=== PATIENT | male | born 1950 | race Caucasian/White ===

== ENCOUNTER → 2017-07-06 | Outpatient (REF) | payer MEDICARE, OTHER ==
[2017-07-06 19:35] LABS: ATYPICAL LYMPH 31 % (0-5); EOSINOPHILS 1 % (0-5); LYMPHOCYTES 48 % (16-52); MONOCYTES 2 % (0-8); NEUTROPHILS 18 % (35-75)
[2017-07-06 19:43] LABS: PLATELET ESTIMATE NORMAL (NORMAL)
== END ==
LOC: M LAB REF 19:00
DX: J44.9 Chronic obstructive pulmonary disease, unspecified (principal)
CPT/HCPCS: 85007

== ENCOUNTER → 2017-07-13 | Outpatient (REF) | payer MEDICARE, OTHER ==
[2017-07-13 12:53] LABS: SLIDE REVIEW Report; SOURCE PERIPHERAL SMEAR
[2017-07-13 12:54] LABS: REASON FOR REVIEW ABSOLUTE LYMPH >5.0
[2017-07-13 13:14] LABS: ATYPICAL LYMPH 37 % (0-5); LYMPHOCYTES 27 % (16-52); MONOCYTES 5 % (0-8); NEUTROPHILS 31 % (35-75)
[2017-07-13 13:16] LABS: PLATELET ESTIMATE INVALID (NORMAL)
[2017-07-13 13:17] LABS: PLATELET CLUMPS MODERATE AMT
== END ==
LOC: M LAB REF 12:27
DX: D72.829 Elevated white blood cell count, unspecified (principal)
CPT/HCPCS: 85007

== ENCOUNTER → 2017-11-18 | Outpatient (REF) | payer MEDICARE, BC, OTHER ==
[2017-11-18 19:44] LABS: IMMUNOGLOBULIN A 93.1 MG/DL (70-400); IMMUNOGLOBULIN G 821 MG/DL (681-1648); IMMUNOGLOBULIN M 1370 MG/DL (40-230); TOTAL PROTEIN 8.1 GM/DL (6.4-8.2)
[2017-11-19 12:57] LABS: IMMUNOTYPING SERUM IGM ABNORMAL (NORMAL); IMMUNOTYPING SERUM KAPPA ABNORMAL (NORMAL)
[2017-11-19 14:04] LABS: ALBUMIN 4.29 GM/DL (3.29-5.55); ALPHA-1-GLOBULIN % 3.2 % (2.9-4.9); ALPHA-1-GLOBULINS 0.26 GM/DL (0.17-0.41); ALPHA-2-GLOBULINS 0.95 GM/DL (0.42-0.99); ALPHA-2-GLOBULINS % 11.7 % (7.1-11.8); BETA-1-GLOBULINS 0.43 GM/DL (0.28-0.60); BETA-1-GLOBULINS % 5.3 % (4.7-7.2); BETA-2-GLOBULINS 0.35 GM/DL (0.19-0.55); BETA-2-GLOBULINS % 4.3 % (3.2-6.5); GAMMA GLOBULIN % 22.5 % (11.1-18.8); GAMMA GLOBULINS 1.82 GM/DL (0.65-1.58)
[2017-11-21 00:14] LABS: BETA 2 MICROGLOBULIN 2.2 mg/L (0.6-2.4)
[2017-11-21 00:14] LABS: FREE KAPPA LIGHT CHAINS SERUM 12.4 mg/L (3.3-19.4); FREE LAMBDA LIGHT CHAINS SERUM 19.5 mg/L (5.7-26.3); KAPPA/LAMBDA RATIO SERUM 0.64 (0.26-1.65); SERUM VISCOSITY 2.2 rel.saline (1.6-1.9)
== END ==
LOC: M LAB REF 17:48
DX: C88.0 Waldenstrom macroglobulinemia (principal)
CPT/HCPCS: 84165

== ENCOUNTER → 2017-11-20 | Outpatient (CLI) | payer MEDICARE ==
[~2017-11-20] MED LIST: GASTROGRAFIN SOLUTION 30ML (Q9963) As Ordered; ISOVUE-370 76% 100ML VIAL (Q9967) As Ordered
[2017-11-20 15:09] LABS: TOTAL PROTEIN,RANDOM URINE < 5.0 MG/DL (0.0-12.0); URINE TOTAL PROTEIN < 5.0 MG/DL (0-12)
[2017-11-25 14:54] LABS: UPEP INTERPRETATION M-SPIKE IN GAMMA; URINE VOLUME 2250 ML
[2017-11-25 14:56] LABS: IMMUNOTYPE URINE KAPPA ABNORMAL (NORMAL)
== END ==
LOC: M RAD 13:12
DX: J44.9 Chronic obstructive pulmonary disease, unspecified (principal); K57.30 Diverticulosis of large intestine without perforation or abscess without bleeding
CPT/HCPCS: Q9963

== ENCOUNTER → 2017-11-25 | Outpatient (REF) | payer MEDICARE | LOC: M LAB REF 13:59 | DX: C83.00 Small cell B-cell lymphoma, unspecified site (principal) | CPT/HCPCS: 88300 ==

== ENCOUNTER → 2018-02-19 | Outpatient (CLI) | payer MEDICARE ==
[~2018-02-19] MED LIST changes: -GASTROGRAFIN SOLUTION 30ML (Q9963) As Ordered; -ISOVUE-370 76% 100ML VIAL (Q9967) As Ordered; +LIDOCAINE 2% MDV 20 ML VIAL As Ordered; +MIDAZOLAM INJ 2 MG/2 ML VIAL (J2250) As Ordered; +ceFAZolin 1GM INJ (J0690 PER 500MG) As Ordered; +fentaNYL 100 MCG/2 ML INJECTION (J3010) As Ordered
== END | disposition home or self-care (01) ==
LOC: M IRPRO 06:58
DX: C83.00 Small cell B-cell lymphoma, unspecified site (principal)
CPT/HCPCS: 36561

== ENCOUNTER → 2020-05-25 | Outpatient (REF) | payer MEDICARE ==
[~2020-05-25] MED LIST changes: +ACET-683 PO; +ACET325T43 PO; +CBD OIL PO; +CENTCHW3 PO; +CLOT1CRE51 TOP; +GABA-1171 PO; +IMBR420T PO; -LIDOCAINE 2% MDV 20 ML VIAL As Ordered; -MIDAZOLAM INJ 2 MG/2 ML VIAL (J2250) As Ordered; +MIRA3350 PO; +OMEP40CA97 PO; +ONDA8TAB10 PO; +PROC10TA4 PO; +SENO8.6T5 PO; +VENTAER IN; -ceFAZolin 1GM INJ (J0690 PER 500MG) As Ordered; -fentaNYL 100 MCG/2 ML INJECTION (J3010) As Ordered
[2020-05-25 13:46] LABS: IMMUNOGLOBULIN A 35.9 MG/DL (70-400); IMMUNOGLOBULIN G 643 MG/DL (681-1648); TOTAL PROTEIN 6.9 GM/DL (6.4-8.2)
[2020-05-26 18:07] LABS: FREE KAPPA LIGHT CHAINS SERUM 7.6 mg/L (3.3-19.4); FREE LAMBDA LIGHT CHAINS SERUM 11.4 mg/L (5.7-26.3); KAPPA/LAMBDA RATIO SERUM 0.67 (0.26-1.65)
[2020-05-29 06:44] LABS: ALBUMIN 4.23 GM/DL (3.29-5.55); ALBUMIN % 61.3 % (55.8-66.1); ALPHA-1-GLOBULIN % 2.7 % (2.9-4.9); ALPHA-1-GLOBULINS 0.19 GM/DL (0.17-0.41); ALPHA-2-GLOBULINS 0.77 GM/DL (0.42-0.99); ALPHA-2-GLOBULINS % 11.1 % (7.1-11.8); BETA-1-GLOBULINS 0.35 GM/DL (0.28-0.60); BETA-1-GLOBULINS % 5.1 % (4.7-7.2); BETA-2-GLOBULINS 0.24 GM/DL (0.19-0.55); BETA-2-GLOBULINS % 3.5 % (3.2-6.5); GAMMA GLOBULIN % 16.3 % (11.1-18.8); GAMMA GLOBULINS 1.12 GM/DL (0.65-1.58)
[2020-05-29 06:57] LABS: IMMUNOTYPING SERUM IGM ABNORMAL (NORMAL); IMMUNOTYPING SERUM KAPPA ABNORMAL (NORMAL)
== END ==
LOC: M LAB REF 12:15
PROVIDERS: ATTEND Internal Medicine
DX: C88.0 Waldenstrom macroglobulinemia (principal)

== ENCOUNTER → 2020-08-27 | Outpatient (REF) | payer MEDICARE ==
[2020-08-27 14:39] LABS: IMMUNOGLOBULIN G 668 MG/DL (681-1648)
[2020-08-28 18:07] LABS: FREE KAPPA LIGHT CHAINS SERUM 7.6 mg/L (3.3-19.4); FREE LAMBDA LIGHT CHAINS SERUM 11.4 mg/L (5.7-26.3); KAPPA/LAMBDA RATIO SERUM 0.67 (0.26-1.65)
[2020-08-30 14:01] LABS: ALBUMIN 4.49 GM/DL (3.29-5.55); ALBUMIN % 64.1 % (55.8-66.1); ALPHA-1-GLOBULIN % 2.1 % (2.9-4.9); ALPHA-1-GLOBULINS 0.15 GM/DL (0.17-0.41); ALPHA-2-GLOBULINS 0.78 GM/DL (0.42-0.99); ALPHA-2-GLOBULINS % 11.1 % (7.1-11.8); BETA-1-GLOBULINS 0.34 GM/DL (0.28-0.60); BETA-1-GLOBULINS % 4.9 % (4.7-7.2); BETA-2-GLOBULINS 0.22 GM/DL (0.19-0.55); BETA-2-GLOBULINS % 3.2 % (3.2-6.5); GAMMA GLOBULIN % 14.6 % (11.1-18.8); GAMMA GLOBULINS 1.02 GM/DL (0.65-1.58)
[2020-08-30 14:31] LABS: IMMUNOTYPING SERUM IGM ABNORMAL (NORMAL); IMMUNOTYPING SERUM KAPPA ABNORMAL (NORMAL)
== END ==
LOC: M LAB REF 11:26
PROVIDERS: ATTEND Internal Medicine
DX: C88.0 Waldenstrom macroglobulinemia (principal)

== ENCOUNTER → 2021-05-01 | Outpatient (CLI) | payer MEDICARE ==
[~2021-05-01] MED LIST changes: +OMEP40CA4 PO; -OMEP40CA97 PO
== END ==
LOC: M LABSMTC 09:33
PROVIDERS: ATTEND Anesthesiology
DX: Z01.812 Encounter for preprocedural laboratory examination (principal); Z20.822 Contact with and (suspected) exposure to COVID-19

== ENCOUNTER → 2021-05-22 | Outpatient (CLI) | payer MEDICARE ==
[~2021-05-22] MED LIST changes: +ONDA-84 PO; -ONDA8TAB10 PO; -PROC10TA4 PO; +PROC10TA5 PO; -VENTAER IN; +VENTAER INH
== END ==
LOC: M LABSMTC 13:53
PROVIDERS: ATTEND Anesthesiology
DX: Z01.812 Encounter for preprocedural laboratory examination (principal); Z20.822 Contact with and (suspected) exposure to COVID-19

== ENCOUNTER 2021-05-27 11:17 | Day surgery (SDC) | payer MEDICARE ==
[~2021-05-27] VITALS: Ht 175.3 cm; Wt 76.2 kg
[~2021-05-27 11:17] MED LIST changes: +LIDOCAINE 1% SDV 5ML VIAL As Ordered ONE; +LR 1,000 ML IV SCH; +MIDAZOLAM INJ 2MG/2ML VIAL (J2250 PER 1MG) As Ordered ONE; +fentaNYL 100 MCG/2 ML INJECTION (J3010) As Ordered ONE
[2021-05-27] MEDS: TETRACAINE 0.5% OPHTH SOLN 4ML OD SCH (12:40)
[2021-05-27] MEDS: FLURBIPROFEN 0.03% OPHTH SOLN 2.5 ML OD SCH ×3 (12:40→13:08)
[2021-05-27] MEDS: CYCLOPENTOLATE 1% OPHTH SOLN 2 ML BTL OD SCH ×3 (12:40→13:08)
[2021-05-27] MEDS: PHENYLEPHRINE 2.5% OPHTH SOL 2ML OD SCH ×3 (12:40→13:08)
[2021-05-27 14:55] VITALS: BP 158/85
== END 2021-05-27 15:00 | disposition home or self-care (01) ==
LOC: M SDC 11:17
PROVIDERS: ATTEND Ophthalmology
DX: H25.11 Age-related nuclear cataract, right eye (principal); J44.9 Chronic obstructive pulmonary disease, unspecified; Z79.51 Long term (current) use of inhaled steroids; Z79.899 Other long term (current) drug therapy
CPT/HCPCS: 66984; J2250; J3010; V2632

== ENCOUNTER 2021-08-14 15:36 | Emergency (ER) | payer MEDICARE ==
[~2021-08-14] VITALS: Ht 172.7 cm; Wt 79.1 kg
[~2021-08-14 15:36] MED LIST changes: -LIDOCAINE 1% SDV 5ML VIAL As Ordered ONE; -LR 1,000 ML IV SCH; -MIDAZOLAM INJ 2MG/2ML VIAL (J2250 PER 1MG) As Ordered ONE; +VITMTA PO; -fentaNYL 100 MCG/2 ML INJECTION (J3010) As Ordered ONE
[2021-08-14 15:37] VITALS: BP 208/96
[2021-08-14] MEDS ORDERED: ALBU83IN (15:45)
== END 2021-08-14 17:20 | disposition left against medical advice (07) ==
LOC: M ED 15:36
DX: Z53.21 Procedure and treatment not carried out due to patient leaving prior to being seen by health care provider (principal)

== ENCOUNTER → 2023-07-20 | Outpatient (CLI) | payer MEDICARE ==
[~2023-07-20] MED LIST changes: +ADVOTES6 MC; +ALBU2.5V10; +ALBU8.5H INH; +AMOX500T PO; +HYDR-3713; +HYDR-3713 PO; +IMBR420T; +VALS1TAB67 PO
[2023-07-20 12:01] LABS: BASO # 0.1 10^3/uL (0.0-0.2); BASO % 0.4 % (0.0-1.0); EOS % 0.4 % (0.0-3.0); HEMATOCRIT 43.3 % (42.0-52.0); HEMOGLOBIN 14.2 g/dl (13.5-17.5); LYMPH # 0.8 10^3/uL (1.5-5.0); LYMPH % 6.9 % (24.0-44.0); MEAN CORPUSCULAR HEMOGLOBIN 30.1 pg (27.0-33.0); MEAN CORPUSCULAR HGB CONC 32.8 g/dl (32.0-36.5); MEAN CORPUSCULAR VOLUME 91.7 fl (80.0-96.0); MONO # 1.1 10^3/uL (0.0-0.8); MONO % 9.2 % (2.0-8.0); NEUTROPHILS # 9.4 10^3/uL (1.5-8.5); NEUTROPHILS % 82.7 % (36.0-66.0); PLATELET COUNT, AUTOMATED 196 10^3/uL (150-450); RED BLOOD COUNT 4.72 10^6/uL (4.30-6.10); WHITE BLOOD COUNT 11.4 10^3/uL (4.0-10.0)
[2023-07-20 12:18] LABS: BLOOD UREA NITROGEN 11 MG/DL (9-23); CALCIUM LEVEL 9.1 MG/DL (8.3-10.6); CARBON DIOXIDE LEVEL 31 MMOL/L (20-31); CHLORIDE LEVEL 103 MMOL/L (98-107); CREATININE FOR GFR 0.97 MG/DL (0.70-1.30); GLOMERULAR FILTRATION RATE > 60.0 (>42); GLUCOSE, FASTING 87 MG/DL (74-106); POTASSIUM SERUM 3.9 MMOL/L (3.5-5.1); SODIUM LEVEL 136 MMOL/L (136-145)
== END ==
LOC: M LAB 10:44
PROVIDERS: ATTEND Internal Medicine
DX: J18.9 Pneumonia, unspecified organism (principal); E78.00 Pure hypercholesterolemia, unspecified; I10 Essential (primary) hypertension

== ENCOUNTER → 2023-07-31 | Outpatient (CLI) | payer MEDICARE | LOC: M RAD 12:08 | PROVIDERS: ATTEND Internal Medicine | DX: J18.9 Pneumonia, unspecified organism (principal); J43.9 Emphysema, unspecified; Z95.828 Presence of other vascular implants and grafts ==

== ENCOUNTER → 2023-08-20 | Outpatient (CLI) | payer MEDICARE | LOC: M RAD 10:10 | PROVIDERS: ATTEND Internal Medicine Medical Oncology | DX: M79.89 Other specified soft tissue disorders (principal) ==

== ENCOUNTER 2023-09-13 20:08 | Inpatient (IN) | payer MEDICARE ==
[~2023-09-13] VITALS: Ht 154.3 cm; Wt 70.2 kg
[~2023-09-13 20:08] MED LIST changes: -ALBU2.5V10; +ALBU2.5V10 INH
[2023-09-13] MEDS: methylPREDNISolone 125MG 2ML VIAL IV ONE (20:33)
[2023-09-13 20:40] LABS: BASO % 0.3 % (0.0-1.0); HEMATOCRIT 40.5 % (42.0-52.0); HEMOGLOBIN 13.8 g/dl (13.5-17.5); LYMPH # 0.8 10^3/uL (1.5-5.0); LYMPH % 6.7 % (24.0-44.0); MEAN CORPUSCULAR HEMOGLOBIN 29.2 pg (27.0-33.0); MEAN CORPUSCULAR HGB CONC 34.1 g/dl (32.0-36.5); MEAN CORPUSCULAR VOLUME 85.6 fl (80.0-96.0); MONO % 8.9 % (2.0-8.0); NEUTROPHILS # 9.7 10^3/uL (1.5-8.5); NEUTROPHILS % 83.8 % (36.0-66.0); PLATELET COUNT, AUTOMATED 265 10^3/uL (150-450); RED BLOOD COUNT 4.73 10^6/uL (4.30-6.10); WHITE BLOOD COUNT 11.5 10^3/uL (4.0-10.0)
[2023-09-13] MEDS: IPRATROPIUM 0.5MG/ALBUTEROL 2.5MG INH SOL UD 3ML (DUONEB) NEB PRN (20:40)
[2023-09-13 20:53] LABS: ABG BASE EXCESS -2.7 (-2.0-2.0); ABG O2 SATURATION 97.6 % (95.0-99.0); ABG PARTIAL PRESSURE CO2 38.1 mmHg (35.0-45.0); ABG PARTIAL PRESSURE O2 100.5 mmHg (75.0-100.0); ABG STANDARD HCO3 22.3 MMOL/L. (22.0-26.0); ABG TOTAL CO2 23.2 MMOL/L (23.0-31.0)
[2023-09-13 21:10] LABS: CK-MB VALUE MASS 1.2 NG/ML (<3.6)
[2023-09-13 21:12] LABS: ALKALINE PHOSPHATASE 70 U/L (46-116); ALT/SGPT 12 U/L (7.0-40); AST/SGOT 17 U/L (<34); BILIRUBIN,DIRECT 0.2 MG/DL (<0.4); BILIRUBIN,TOTAL 0.5 MG/DL (0.3-1.2); BLOOD UREA NITROGEN 13 MG/DL (9-23); CALCIUM LEVEL 8.7 MG/DL (8.3-10.6); CARBON DIOXIDE LEVEL 24 MMOL/L (20-31); CHLORIDE LEVEL 104 MMOL/L (98-107); CREATININE FOR GFR 0.75 MG/DL (0.70-1.30); GLOMERULAR FILTRATION RATE > 60.0 (>42); GLUCOSE, FASTING 114 MG/DL (74-106); POTASSIUM SERUM 3.9 MMOL/L (3.5-5.1); SODIUM LEVEL 135 MMOL/L (136-145); TOTAL PROTEIN 6.2 G/DL (5.7-8.2)
[2023-09-13 21:14] LABS: THYROID STIMULATING HORMONE 2.263 uIU/ML (0.55-4.78)
[2023-09-13 21:37] LABS: CPK CREATINE PHOSPHOKINASE 43 U/L (46-171); MB/CK RELATIVE INDEX 2.79 (< OR =4)
[2023-09-13] MEDS ORDERED: IMBR420T PO (22:36)
[2023-09-13] MEDS ORDERED: FLUT1BLS8 IH (22:37)
[2023-09-13] MEDS ORDERED: HOME MED LIST COMPLETE! XX SCH (22:40)
[2023-09-13] MEDS: ALBUTEROL SULFATE 2.5MG/0.5ML INH NEB SOLN NEB ONE (22:47)
[2023-09-13] MEDS: cefTRIAXone SOD 1 GM in D5W MINI-BAG PLUS 50 ML IV SCH (23:21)
[2023-09-13] MEDS: AZITHROMYCIN 250MG TABLET PO ONE (23:22)
[2023-09-13] MEDS: NS 1,000 ML IV SCH (23:22)
[2023-09-13] MEDS: guaiFENesin ER TABLET 600 MG TAB PO SCH (23:22)
[2023-09-13] MEDS: IPRATROPIUM 0.5MG/ALBUTEROL 2.5MG INH SOL UD 3ML (DUONEB) NEB SCH (23:29)
[2023-09-13 23:48] VITALS: BP 123/93; TEMP 97.7; O2SAT 94
[2023-09-14] VITALS (7 sets, daily range): BP systolic 133–168; BP diastolic 58–83; TEMP 87.7–98.4; O2SAT 92–95
[2023-09-14] MEDS: ACETAMINOPHEN TAB 650MG DOSE (2X325MG) PO PRN (00:43)
[2023-09-14] MEDS: methylPREDNISolone 125MG 2ML VIAL IV SCH (05:17)
[2023-09-14 07:14] LABS: HEMATOCRIT 39.6 % (42.0-52.0); HEMOGLOBIN 13.6 g/dl (13.5-17.5); MEAN CORPUSCULAR HEMOGLOBIN 29.5 pg (27.0-33.0); MEAN CORPUSCULAR HGB CONC 34.3 g/dl (32.0-36.5); MEAN CORPUSCULAR VOLUME 85.9 fl (80.0-96.0); PLATELET COUNT, AUTOMATED 258 10^3/uL (150-450); RED BLOOD COUNT 4.61 10^6/uL (4.30-6.10); WHITE BLOOD COUNT 6.1 10^3/uL (4.0-10.0)
[2023-09-14 07:40] LABS: ALBUMIN 3.1 G/DL (3.2-5.2); ALKALINE PHOSPHATASE 69 U/L (46-116); ALT/SGPT 12 U/L (7.0-40); AST/SGOT 11 U/L (<34); BILIRUBIN,TOTAL 0.4 MG/DL (0.3-1.2); BLOOD UREA NITROGEN 13 MG/DL (9-23); CALCIUM LEVEL 8.9 MG/DL (8.3-10.6); CARBON DIOXIDE LEVEL 23 MMOL/L (20-31); CHLORIDE LEVEL 103 MMOL/L (98-107); CREATININE FOR GFR 0.78 MG/DL (0.70-1.30); GLOMERULAR FILTRATION RATE > 60.0 (>42); GLUCOSE, FASTING 159 MG/DL (74-106); MAGNESIUM LEVEL 1.7 MG/DL (1.8-2.4); POTASSIUM SERUM 4.1 MMOL/L (3.5-5.1); SODIUM LEVEL 135 MMOL/L (136-145); TOTAL PROTEIN 6.2 G/DL (5.7-8.2)
[2023-09-14 07:51] LABS: PROCALCITONIN 0.11 ng/ml
[2023-09-14] MEDS: ADVAIR HFA 230/21MCG INHALER INH SCH (08:00)
[2023-09-14] MEDS: TIOTROPIUM INHALER/CAPSULE (SPIRIVA) INH SCH (08:00)
[2023-09-14] MEDS: guaiFENesin ER TABLET 600 MG TAB PO SCH (08:45)
[2023-09-14] MEDS: DOCUSATE SODIUM 100MG CAPSULE PO SCH (08:45)
[2023-09-14] MEDS: CETIRIZINE (ZyrTEC) 10 MG TAB PO SCH (08:46)
[2023-09-14] MEDS: MONTELUKAST 10 MG TAB PO SCH (08:46)
[2023-09-14] MEDS: OXYMETAZOLINE 0.05% NASAL SPRAY (AFRIN) SCH (08:46)
[2023-09-14] MEDS: ENOXAPARIN 40MG/0.4ML SYRINGE (J1650 PER 10MG) SC SCH (08:46)
[2023-09-14] MEDS: PANTOPRAZOLE 40MG TAB (PROTONIX) PO SCH (08:46)
[2023-09-14] MEDS ORDERED: FLUTICASONE HFA 110MCG 12GM INHALER (FLOVENT) INH SCH (09:00)
[2023-09-14] MEDS: MAG SULF 1GM/100ML (MAG RUN) 1 GM in IV 1 EA IV ONE (10:38)
[2023-09-14] MEDS: AZITHROMYCIN 250MG TABLET PO SCH (22:10)
[2023-09-15] VITALS (7 sets, daily range): BP systolic 128–162; BP diastolic 64–90; TEMP 97.3–98; O2SAT 90–97
[2023-09-15 09:18] LABS: BLOOD UREA NITROGEN 16 MG/DL (9-23); CALCIUM LEVEL 8.9 MG/DL (8.3-10.6); CARBON DIOXIDE LEVEL 25 MMOL/L (20-31); CHLORIDE LEVEL 107 MMOL/L (98-107); CREATININE FOR GFR 0.77 MG/DL (0.70-1.30); GLOMERULAR FILTRATION RATE > 60.0 (>42); GLUCOSE, FASTING 152 MG/DL (74-106); POTASSIUM SERUM 3.9 MMOL/L (3.5-5.1); SODIUM LEVEL 140 MMOL/L (136-145)
[2023-09-15] MEDS: methylPREDNISolone 40MG 1ML VIAL IV SCH (21:34)
[2023-09-16 01:42] VITALS: O2SAT 84
[2023-09-16 02:00] VITALS: O2SAT 94
[2023-09-16 02:31] VITALS: BP 124/57; TEMP 97.7; O2SAT 95
[2023-09-16 04:09] VITALS: BP 127/57; TEMP 98.1; O2SAT 96
[2023-09-16 06:41] LABS: BASO % 0.1 % (0.0-1.0); HEMOGLOBIN 13.1 g/dl (13.5-17.5); LYMPH # 0.5 10^3/uL (1.5-5.0); LYMPH % 2.5 % (24.0-44.0); MEAN CORPUSCULAR HEMOGLOBIN 28.7 pg (27.0-33.0); MEAN CORPUSCULAR HGB CONC 33.6 g/dl (32.0-36.5); MEAN CORPUSCULAR VOLUME 85.3 fl (80.0-96.0); MONO # 1.2 10^3/uL (0.0-0.8); MONO % 6.1 % (2.0-8.0); NEUTROPHILS # 17.1 10^3/uL (1.5-8.5); NEUTROPHILS % 90.6 % (36.0-66.0); PLATELET COUNT, AUTOMATED 342 10^3/uL (150-450); RED BLOOD COUNT 4.57 10^6/uL (4.30-6.10); WHITE BLOOD COUNT 18.9 10^3/uL (4.0-10.0)
[2023-09-16 07:02] LABS: BLOOD UREA NITROGEN 20 MG/DL (9-23); CALCIUM LEVEL 9.1 MG/DL (8.3-10.6); CARBON DIOXIDE LEVEL 25 MMOL/L (20-31); CHLORIDE LEVEL 103 MMOL/L (98-107); CREATININE FOR GFR 0.82 MG/DL (0.70-1.30); GLOMERULAR FILTRATION RATE > 60.0 (>42); GLUCOSE, FASTING 131 MG/DL (74-106); MAGNESIUM LEVEL 2.1 MG/DL (1.8-2.4); POTASSIUM SERUM 3.9 MMOL/L (3.5-5.1); SODIUM LEVEL 137 MMOL/L (136-145)
[2023-09-16 10:00] VITALS: BP 132/68; TEMP 97.5; O2SAT 94
[2023-09-16] MEDS ORDERED: AZIT-12 PO (11:44)
[2023-09-16] MEDS ORDERED: PANT40TA29 PO (11:44)
[2023-09-16] MEDS ORDERED: CEFD1CAP9 PO (11:44)
[2023-09-16] MEDS ORDERED: MUCI600T31 PO (11:44)
[2023-09-16] MEDS ORDERED: MONT10TA97 PO (11:44)
[2023-09-16] MEDS ORDERED: PRED20TA PO (11:44)
[2023-09-16] MEDS ORDERED: TIOT18INH INH (11:44)
[2023-09-16] MEDS ORDERED: OXYM05SP (11:44)
[2023-09-16 14:00] VITALS: BP 128/62; TEMP 97.9; O2SAT 95
== END 2023-09-16 16:15 | disposition home or self-care (01) | DRG 191 ==
LOC: M ED 20:08 → M ED INP 22:31 → M MSPAV 23:48
PROVIDERS: ADMIT Preventive Medicine Undersea and Hyperbaric Medicine; ATTEND Hospitalist
DX: J44.1 Chronic obstructive pulmonary disease with (acute) exacerbation (principal); C85.90 Non-Hodgkin lymphoma, unspecified, unspecified site; E87.1 Hypo-osmolality and hyponatremia; E83.42 Hypomagnesemia; I10 Essential (primary) hypertension; C88.0 Waldenstrom macroglobulinemia; Z79.899 Other long term (current) drug therapy; E86.0 Dehydration; Z66 Do not resuscitate

== ENCOUNTER → 2024-03-16 | Outpatient (CLI) | payer MEDICARE ==
[~2024-03-16] MED LIST changes: +AZIT-12 PO; +CEFD1CAP9 PO; +FLUT1BLS8 IH; +MONT10TA97 PO; +MUCI600T31 PO; +OXYM05SP; +PANT40TA29 PO; +PRED10TA2 PO; +PRED20TA PO; +TIOT18INH INH
== END ==
LOC: M WUC 12:21
PROVIDERS: ATTEND Student in an Organized Health Care Education/Training Program
DX: R06.02 Shortness of breath (principal); R91.8 Other nonspecific abnormal finding of lung field

== ENCOUNTER → 2024-09-20 | Outpatient (REF) | payer MEDICARE ==
[2024-09-20 20:04] LABS: BASOPHILS 1 % (0-1); LYMPHOCYTES 14 % (16-44); MONOCYTES 8 % (0-5); NEUTROPHILS 77 % (28-66); PLATELET ESTIMATE NORMAL (NORMAL)
== END ==
LOC: M LAB REF 16:45
PROVIDERS: ATTEND Internal Medicine
DX: C91.10 Chronic lymphocytic leukemia of B-cell type not having achieved remission (principal)

== ENCOUNTER → 2025-03-27 | Outpatient (REF) | payer MEDICARE ==
[~2025-03-27] MED LIST changes: +INDA1.253 PO; +LOSA25TA13; +SENN-225 PO; -SENO8.6T5 PO
[2025-03-27 18:51] LABS: ATYPICAL LYMPH 1 % (0-5); BASOPHILS 1 % (0-1); EOSINOPHILS 1 % (0-3); LYMPHOCYTES 10 % (16-44); MONOCYTES 8 % (0-5); NEUTROPHILS 78 % (28-66); PLATELET ESTIMATE NORMAL (NORMAL)
== END ==
LOC: M LAB REF 17:13
PROVIDERS: ATTEND Internal Medicine
DX: C91.10 Chronic lymphocytic leukemia of B-cell type not having achieved remission (principal)